=== PATIENT | female | born 1990 | race Caucasian/White ===

== ENCOUNTER → 2021-05-07 | Outpatient (CLI) | payer BC ==
[2021-05-07 20:12] LABS: BASOPHILS ABSOLUTE AUTO 0.01 K/mm3 (0.00-0.23); BASOPHILS PERCENT AUTO 0 % (0-2); EOSINOPHILS PERCENT AUTO 0 % (0-6); Hematocrit 41.5 % (33.0-51.0); Hemoglobin 14.2 g/dL (11.5-16.0); IMMATURE GRAN ABSOLUTE AUTO 0.01 K/mm3 (0.00-0.10); IMMATURE GRAN PERCENT AUTO 0 % (0-1); LYMPHOCYTES ABSOLUTE AUTO 2.91 K/mm3 (0.84-5.20); LYMPHOCYTES PERCENT AUTO 37 % (21-46); MONOCYTES ABSOLUTE AUTO 0.69 K/mm3 (0.16-1.47); MONOCYTES PERCENT AUTO 9 % (4-13); Mean Corpuscular HGB 33.3 pg (26.0-34.0); Mean Corpuscular HGB Conc 34.2 g/dL (31.5-36.5); Mean Corpuscular Volume 97 fL (80-100); Mean Platelet Volume 11.3 fL (9.1-12.4); NEUTROPHILS ABSOLUTE AUTO 4.34 K/mm3 (1.96-9.15); NEUTROPHILS PERCENT AUTO 55 % (41-73); Platelet Count 306 K/mm3 (150-400); RDW Coefficient Variation 12.2 % (11.7-14.2); Red Blood Cell Count 4.27 M/mm3 (3.80-5.20); White Blood Cell Count 7.96 K/mm3 (4.00-11.30)
[2021-05-07 20:26] LABS: Alanine Aminotransfer (ALT/SGP 45 U/L (12-78); Albumin, Blood 3.4 g/dL (3.4-5.0); Albumin/Globulin Ratio 0.9 (0.8-1.8); Alk Phos 67 U/L (50-136); Anion Gap 5 mmol/L (6-16); Aspartate Aminotrans (AST/SGOT 28 U/L (12-37); Bilirubin, Total 0.2 mg/dL (0.1-1.0); Blood Urea Nitrogen 12 mg/dL (8-24); Bun/Creatinine Ratio 20.6 (12.0-20.0); CHOL/HDL RATIO 5.3; CO2, Blood 27 mmol/L (21-32); Calcium, Blood 8.6 mg/dL (8.5-10.1); Chloride, Blood 106 mmol/L (98-108); Cholesterol 233 mg/dL (50-200); Creatinine, Blood 0.58 mg/dL (0.40-1.00); Globulin, Blood 3.9 g/dL (2.2-4.0); Glomerular Filtration Rate >60 (60-); Glucose, Blood 90 mg/dL (70-99); HDL Cholesterol 44 mg/dL (>39); LDL/HDL RATIO 3.3; Low Density Lipoprotein Chol 146 mg/dL (0-110); Sodium, Blood 138 mmol/L (136-145); Total Protein, Blood 7.3 g/dL (6.4-8.2); Triglycerides 216 mg/dL (30-140); Very Low Density Lipoprot Chol 43 mg/dL (6-28)
== END | disposition home or self-care (01) ==
LOC: LAB SHORT 16:00 → LAB 16:00
PROVIDERS: Nurse Practitioner Family
DX: Z13.220 Encounter for screening for lipoid disorders (principal); Z13.29 Encounter for screening for other suspected endocrine disorder; J45.909 Unspecified asthma, uncomplicated
CPT/HCPCS: 80053; 80061; 84443; 85025

== ENCOUNTER 2021-10-07 17:38 | Inpatient (IN) | payer BC, OTHER ==
[~2021-10-07] VITALS: Ht 162.6 cm; Wt 77.1 kg
[2021-10-07 19:34] LABS: Source, Urine Clean Catch
[2021-10-07 19:43] LABS: Appearance, Urine Clear (Clear); Bilirubin, Urine Neg (Neg); Blood, Urine 5+ (Neg); Color, Urine Amber (P-Yellow); Glucose Qualitative, Urine Neg (Neg); Ketones, Urine 2+ (Neg); Leukocyte Esterase, Urine Neg (Neg); Nitrite, Urine Neg (Neg); Protein, Urine 3+ (Neg); Urobilinogen, Urine 1+ (Normal)
[2021-10-07 20:00] LABS: Bacteria Many /hpf; Squamous Epithelial Cells Rare /hpf (Few); White Blood Cells, Urine 0-2 /hpf (0-5)
[2021-10-07 20:00] LABS: BASOPHILS ABSOLUTE AUTO 0.01 K/mm3 (0.00-0.23); BASOPHILS PERCENT AUTO 0 % (0-2); EOSINOPHILS PERCENT AUTO 0 % (0-6); Hematocrit 41.6 % (33.0-51.0); Hemoglobin 14.2 g/dL (11.5-16.0); IMMATURE GRAN ABSOLUTE AUTO 0.03 K/mm3 (0.00-0.10); IMMATURE GRAN PERCENT AUTO 0 % (0-1); LYMPHOCYTES ABSOLUTE AUTO 1.18 K/mm3 (0.84-5.20); LYMPHOCYTES PERCENT AUTO 12 % (21-46); MONOCYTES ABSOLUTE AUTO 0.68 K/mm3 (0.16-1.47); MONOCYTES PERCENT AUTO 7 % (4-13); Mean Corpuscular HGB 34.1 pg (26.0-34.0); Mean Corpuscular HGB Conc 34.1 g/dL (31.5-36.5); Mean Corpuscular Volume 100 fL (80-100); Mean Platelet Volume 10.6 fL (9.1-12.4); NEUTROPHILS ABSOLUTE AUTO 8.17 K/mm3 (1.96-9.15); NEUTROPHILS PERCENT AUTO 81 % (41-73); Platelet Count 287 K/mm3 (150-400); RDW Coefficient Variation 12.1 % (11.7-14.2); RDW Standard Deviation 44.6 fL (35.1-46.3); Red Blood Cell Count 4.16 M/mm3 (3.80-5.20); White Blood Cell Count 10.07 K/mm3 (4.00-11.30)
[2021-10-07] MEDS ORDERED: FAMO20 PO (20:06)
[2021-10-07] MEDS ORDERED: MONT10T PO (20:06)
[2021-10-07] MEDS ORDERED: OXYB5 PO (20:06)
[2021-10-07] MEDS ORDERED: VENL75ER PO (20:06)
[2021-10-07] MEDS ORDERED: FOLI1 PO (20:08)
[2021-10-07] MEDS ORDERED: BACL10 PO (20:08)
[2021-10-07] MEDS ORDERED: PRENATAL TABLE1 EAC2 PO (20:08)
[2021-10-07 20:33] LABS: Alanine Aminotransfer (ALT/SGP 1183 U/L (12-78); Albumin, Blood 3.6 g/dL (3.4-5.0); Alk Phos 386 U/L (50-136); Anion Gap 8 mmol/L (6-16); Aspartate Aminotrans (AST/SGOT 644 U/L (12-37); Bilirubin, Total 2.2 mg/dL (0.1-1.0); Blood Urea Nitrogen 11 mg/dL (8-24); Bun/Creatinine Ratio 21.2 (12.0-20.0); CO2, Blood 26 mmol/L (21-32); Chloride, Blood 104 mmol/L (98-108); Creatinine, Blood 0.52 mg/dL (0.40-1.00); Globulin, Blood 3.6 g/dL (2.2-4.0); Glomerular Filtration Rate >60 (60-); Glucose, Blood 101 mg/dL (70-99); Potassium, Blood 3.9 mmol/L (3.5-5.5); Sodium, Blood 138 mmol/L (136-145); Total Protein, Blood 7.2 g/dL (6.4-8.2)
--- NOTE | 2021-10-08 03:51 | NUR ---
ADMISSION NOTE PT CAME FROM ED AT 0310. PT ADMITTED FOR CHOLEDOCOLITHIASIS. PT NEEDS ERCP AND IS WAITING FOR A COBRA TRANSFER TO A DIFFERENT FACILITY. THERE ARE NO BEDS AVAILABLE AT THIS TIME. PT MEDICATED WITH DILAUDID BEFORE COMING TO THE FLOOR. PT WAS NAUSEATED AND VOMITED EARLIER IN THE DAY, BUT DENIES THE NEED TO DO SO AT THIS TIME. LR BOLUS FINISHED UPON ARRIVAL TO 335 AND PT WAS SWITCHED TO LR AT 100ML/HR. PT WILL BE STARTING ON LEVAQUIN. PT'S O2 HAS BEEN 93-94. PT STS SHE IS NOT SOB. WILL CONTINUE TO MONITOR. HR HAS BEEN IN THE 100'S AND GETS WORSE WITH PAIN, PER PT. [facility], PT ASKED TO KEEP THEM ON. SKIN CHECKED AND INTACT, WILL ALLOW PT TO STAY IN HER REGULAR CLOTHES. PT HAS HX OF CEREBRAL PALSY AND IS NORMALLY WHEELCHAIR BOUND. PT STS SHE CAN USE BEDSIDE COMMODE WITH ASSISTANCE FROM ONE STAFF MEMBER. PT'S IV FLUSHES BUT WILL NOT DRAW, PER FIFTH HAND. PT IS NPO.
[2021-10-08 05:28] LABS: BASOPHILS ABSOLUTE AUTO 0.01 K/mm3 (0.00-0.23); BASOPHILS PERCENT AUTO 0 % (0-2); EOSINOPHILS PERCENT AUTO 0 % (0-6); Hematocrit 38.6 % (33.0-51.0); Hemoglobin 12.8 g/dL (11.5-16.0); IMMATURE GRAN ABSOLUTE AUTO 0.01 K/mm3 (0.00-0.10); IMMATURE GRAN PERCENT AUTO 0 % (0-1); LYMPHOCYTES ABSOLUTE AUTO 0.99 K/mm3 (0.84-5.20); LYMPHOCYTES PERCENT AUTO 17 % (21-46); MONOCYTES ABSOLUTE AUTO 0.53 K/mm3 (0.16-1.47); MONOCYTES PERCENT AUTO 9 % (4-13); Mean Corpuscular HGB 33.5 pg (26.0-34.0); Mean Corpuscular HGB Conc 33.2 g/dL (31.5-36.5); Mean Corpuscular Volume 101 fL (80-100); Mean Platelet Volume 10.9 fL (9.1-12.4); NEUTROPHILS ABSOLUTE AUTO 4.35 K/mm3 (1.96-9.15); NEUTROPHILS PERCENT AUTO 74 % (41-73); Platelet Count 255 K/mm3 (150-400); RDW Coefficient Variation 12.2 % (11.7-14.2); RDW Standard Deviation 45.6 fL (35.1-46.3); Red Blood Cell Count 3.82 M/mm3 (3.80-5.20); White Blood Cell Count 5.89 K/mm3 (4.00-11.30)
[2021-10-08 06:52] LABS: Alanine Aminotransfer (ALT/SGP 998 U/L (12-78); Albumin, Blood 2.9 g/dL (3.4-5.0); Albumin/Globulin Ratio 0.9 (0.8-1.8); Alk Phos 347 U/L (50-136); Anion Gap 6 mmol/L (6-16); Aspartate Aminotrans (AST/SGOT 523 U/L (12-37); Bilirubin, Total 3.1 mg/dL (0.1-1.0); Blood Urea Nitrogen 10 mg/dL (8-24); Bun/Creatinine Ratio 20.8 (12.0-20.0); CO2, Blood 26 mmol/L (21-32); Calcium, Blood 8.3 mg/dL (8.5-10.1); Chloride, Blood 106 mmol/L (98-108); Creatinine, Blood 0.48 mg/dL (0.40-1.00); Globulin, Blood 3.2 g/dL (2.2-4.0); Glomerular Filtration Rate >60 (60-); Glucose, Blood 118 mg/dL (70-99); Potassium, Blood 4.3 mmol/L (3.5-5.5); Sodium, Blood 138 mmol/L (136-145); Total Protein, Blood 6.1 g/dL (6.4-8.2)
[2021-10-08 11:15] LABS: Influenza A, PCR NEGATIVE (NEGATIVE); Influenza B, PCR NEGATIVE (NEGATIVE); Resp Syncytial Virus, PCR NEGATIVE (NEGATIVE); SARS-Cov-2 (COVID-19) PCR, MMC NEGATIVE (NEGATIVE)
--- NOTE | 2021-10-08 17:49 | NUR ---
SUMMARY PT RESTING QUIETLY IN BED WAKES EASILY, PT HAS BEEN PLEASANT AND COOPERATIVE WITH CARE, MED PER EMAR FOR PAIN AND NAUSEA, PT IS UP TO THE COMMODE WITH 1P ASSIST, PT HAD AN MRI TODAY, CURRENTLY AWAITING A BED AT [facility] FOR ERCP, VSS WILL CONT TO MONITOR
--- NOTE | 2021-10-09 04:09 | NUR ---
SHIFT SUMMARY PT HAD SOME MILD BURNING AND BLOOD IN URINE LAST EVENING. PT HAS UTI AND IS TAKING LEVAQUIN DAILY, WHICH WAS STARTED YESTERDAY MORNING. PT LATER STS THAT SHE STARTED HER PERIOD AND WAS GIVEN SUPPLIES. PT ABD APPEARS BLOATED AND PT STS SHE FEELS BLOATED AND GASSY. PT MEDICATED FOR PAIN AND NAUSEA PER EMAR. PT IS A ONE PERSON ASSIST TO BEDSIDE COMMODE. PT IS NPO EXCEPT FOR SIPS OF WATER FOR MEDS AND ICE CHIPS. CALL LIGHT WITHIN REACH AND WILL CONTINUE TO MONITOR THE PT.
[2021-10-09 05:15] LABS: BASOPHILS ABSOLUTE AUTO 0.01 K/mm3 (0.00-0.23); BASOPHILS PERCENT AUTO 0 % (0-2); EOSINOPHILS PERCENT AUTO 0 % (0-6); Hematocrit 35.7 % (33.0-51.0); Hemoglobin 11.8 g/dL (11.5-16.0); IMMATURE GRAN ABSOLUTE AUTO 0.03 K/mm3 (0.00-0.10); IMMATURE GRAN PERCENT AUTO 1 % (0-1); LYMPHOCYTES ABSOLUTE AUTO 1.05 K/mm3 (0.84-5.20); LYMPHOCYTES PERCENT AUTO 16 % (21-46); MONOCYTES PERCENT AUTO 9 % (4-13); Mean Corpuscular HGB 33.5 pg (26.0-34.0); Mean Corpuscular HGB Conc 33.1 g/dL (31.5-36.5); Mean Corpuscular Volume 101 fL (80-100); Mean Platelet Volume 11.1 fL (9.1-12.4); NEUTROPHILS PERCENT AUTO 74 % (41-73); Platelet Count 233 K/mm3 (150-400); RDW Coefficient Variation 12.2 % (11.7-14.2); RDW Standard Deviation 45.3 fL (35.1-46.3); Red Blood Cell Count 3.52 M/mm3 (3.80-5.20); White Blood Cell Count 6.59 K/mm3 (4.00-11.30)
[2021-10-09 05:37] LABS: Albumin, Blood 2.6 g/dL (3.4-5.0); Albumin/Globulin Ratio 0.7 (0.8-1.8); Bilirubin, Direct 3.8 mg/dL (0.0-0.3); Bilirubin, Indirect 0.8 mg/dL (0.1-0.7); Bilirubin, Total 4.6 mg/dL (0.1-1.0); Globulin, Blood 3.8 g/dL (2.2-4.0); Total Protein, Blood 6.4 g/dL (6.4-8.2)
--- NOTE | 2021-10-09 06:46 | NUR ---
PT BEING TRANSFERRED TO [facility] RM [id number] AND IS SCHEDULED TO BE PICKED UP FROM HER ROOM AT 0715. REPORT CALLED AND GIVEN TO CRYSTAL DELATORRE AT 0630. PTS BELONGINS PACKED AND PLACED ON TOP OF HER WHEELCHAIR IN ROOM. TRANSFER PACKET IS IN THE CHART CUPBOARD.
--- NOTE | 2021-10-09 07:15 | NUR ---
ASSUMED CARE OF PT- BEDSIDE REPORT COMPLETED. PT TO COBRA TRANSFER TO [facility], REPORT ALREADY CALLED TO RECIEVING CRITICAL CARE PHYSICIAN ARRANGED FOR 714. TRANSFER NOTE- PT PAIN SEEMS WELL MANAGED LAST MEDICATED FOR PAIN AT 629. CALLED [facility] AND INFORMED RECIEVING RN OF THE TIMEOF PT NANCY MARTINEZ DEPARTURE.
== END 2021-10-09 07:36 | disposition short-term general hospital (02) | DRG 446 ==
LOC: ER 17:38 → MEDS 10-08 02:08
PROVIDERS: Family Medicine; Internal Medicine; Physician Assistant; ADMIT Internal Medicine
DX: K80.50 Calculus of bile duct without cholangitis or cholecystitis without obstruction (principal); Z20.822 Contact with and (suspected) exposure to COVID-19; F32.A Depression, unspecified; K21.9 Gastro-esophageal reflux disease without esophagitis; K59.00 Constipation, unspecified; G80.9 Cerebral palsy, unspecified; Z88.1 Allergy status to other antibiotic agents; Z79.899 Other long term (current) drug therapy
CPT/HCPCS: 0241U; 36415; 74176; 74181; 80053; 80076; 81001; 81025; 83605; 83690; 85025; 87086; 96374; 96375; 96376; 99285-25; A9270; J1170; J1650; J1956; J2405; J7030; J7120

== ENCOUNTER 2021-10-18 14:11 | Emergency (ER) | payer BC, OTHER ==
[~2021-10-18] VITALS: Ht 160 cm; Wt 78.5 kg
[~2021-10-18 14:11] MED LIST: BACL10 PO; FAMO20 PO; FOLI1 PO; MONT10T PO; OXYB5 PO; PRENATAL TABLE1 EAC2 PO; VENL75ER PO
[2021-10-18 15:32] LABS: BASOPHILS ABSOLUTE AUTO 0.03 K/mm3 (0.00-0.23); BASOPHILS PERCENT AUTO 0 % (0-2); EOSINOPHILS ABSOLUTE AUTO 0.01 K/mm3 (0.00-0.68); EOSINOPHILS PERCENT AUTO 0 % (0-6); Hematocrit 40.7 % (33.0-51.0); Hemoglobin 13.7 g/dL (11.5-16.0); IMMATURE GRAN ABSOLUTE AUTO 0.05 K/mm3 (0.00-0.10); IMMATURE GRAN PERCENT AUTO 0 % (0-1); LYMPHOCYTES PERCENT AUTO 14 % (21-46); MONOCYTES ABSOLUTE AUTO 1.19 K/mm3 (0.16-1.47); MONOCYTES PERCENT AUTO 9 % (4-13); Mean Corpuscular HGB 33.8 pg (26.0-34.0); Mean Corpuscular HGB Conc 33.7 g/dL (31.5-36.5); Mean Corpuscular Volume 101 fL (80-100); Mean Platelet Volume 10.7 fL (9.1-12.4); NEUTROPHILS ABSOLUTE AUTO 9.56 K/mm3 (1.96-9.15); NEUTROPHILS PERCENT AUTO 76 % (41-73); Platelet Count 445 K/mm3 (150-400); RDW Coefficient Variation 12.3 % (11.7-14.2); RDW Standard Deviation 46.2 fL (35.1-46.3); Red Blood Cell Count 4.05 M/mm3 (3.80-5.20); White Blood Cell Count 12.64 K/mm3 (4.00-11.30)
[2021-10-18 16:02] LABS: Alanine Aminotransfer (ALT/SGP 118 U/L (12-78); Albumin, Blood 3.2 g/dL (3.4-5.0); Albumin/Globulin Ratio 0.8 (0.8-1.8); Alk Phos 187 U/L (50-136); Anion Gap 7 mmol/L (6-16); Aspartate Aminotrans (AST/SGOT 56 U/L (12-37); Bilirubin, Total 0.6 mg/dL (0.1-1.0); Blood Urea Nitrogen 8 mg/dL (8-24); CO2, Blood 26 mmol/L (21-32); Chloride, Blood 105 mmol/L (98-108); Creatinine, Blood 0.57 mg/dL (0.40-1.00); Globulin, Blood 4.1 g/dL (2.2-4.0); Glomerular Filtration Rate >60 (60-); Glucose, Blood 98 mg/dL (70-99); Potassium, Blood 4.1 mmol/L (3.5-5.5); Sodium, Blood 138 mmol/L (136-145); Total Protein, Blood 7.3 g/dL (6.4-8.2)
[2021-10-18] MEDS ORDERED: AMOCLA875 PO (17:05)
== END 2021-10-18 18:47 | disposition home or self-care (01) ==
LOC: ER 14:11
PROVIDERS: Physician Assistant
DX: G89.18 Other acute postprocedural pain (principal); R10.9 Unspecified abdominal pain; K21.9 Gastro-esophageal reflux disease without esophagitis; Z90.49 Acquired absence of other specified parts of digestive tract; Z79.899 Other long term (current) drug therapy
CPT/HCPCS: 36415; 74177; 80053; 83605; 83690; 85025; A9270; J2405; J2543; J7030; Q9967

== ENCOUNTER → 2022-08-05 | Outpatient (CLI) | payer BC, OTHER ==
[~2022-08-05] MED LIST changes: +AMOCLA875 PO
== END ==
LOC: LAB SHORT 11:17 → LAB 11:17
DX: O09.893 Supervision of other high risk pregnancies, third trimester (principal); Z3A.00 Weeks of gestation of pregnancy not specified
CPT/HCPCS: 87081; 87150

== ENCOUNTER 2022-08-25 05:35 | Inpatient (IN) | payer BC, OTHER ==
[~2022-08-25] VITALS: Ht 160 cm; Wt 81.8 kg
[2022-08-25 07:23] LABS: BASOPHILS ABSOLUTE AUTO 0.01 K/mm3 (0.00-0.23); BASOPHILS PERCENT AUTO 0 % (0-2); EOSINOPHILS PERCENT AUTO 0 % (0-6); Hematocrit 40.3 % (33.0-51.0); Hemoglobin 13.5 g/dL (11.5-16.0); IMMATURE GRAN ABSOLUTE AUTO 0.08 K/mm3 (0.00-0.10); IMMATURE GRAN PERCENT AUTO 1 % (0-1); LYMPHOCYTES ABSOLUTE AUTO 1.77 K/mm3 (0.84-5.20); LYMPHOCYTES PERCENT AUTO 22 % (21-46); MONOCYTES ABSOLUTE AUTO 0.53 K/mm3 (0.16-1.47); MONOCYTES PERCENT AUTO 7 % (4-13); Mean Corpuscular HGB 34.3 pg (26.0-34.0); Mean Corpuscular HGB Conc 33.5 g/dL (31.5-36.5); Mean Corpuscular Volume 102 fL (80-100); NEUTROPHILS ABSOLUTE AUTO 5.57 K/mm3 (1.96-9.15); NEUTROPHILS PERCENT AUTO 70 % (41-73); Platelet Count 220 K/mm3 (150-400); RDW Coefficient Variation 13.4 % (11.7-14.2); RDW Standard Deviation 49.9 fL (35.1-46.3); Red Blood Cell Count 3.94 M/mm3 (3.80-5.20); White Blood Cell Count 7.96 K/mm3 (4.00-11.30)
[2022-08-25] MEDS ORDERED: FLUT1DIS2 INH (07:32)
[2022-08-25] MEDS ORDERED: Aspir 8181 MG PO (07:33)
[2022-08-25] MEDS ORDERED: MAGNESIUM OXID500 MG PO (07:34)
[2022-08-25] MEDS ORDERED: HUMULIN N100 UNIT/3 SQ (07:34)
[2022-08-25] MEDS ORDERED: ACYC400 PO (07:35)
--- NOTE | 2022-08-25 08:39 | NUR ---
08/25/22 0839 Petra Portillo C/S BOY TO NICU, CORD BLOOD GIVEN TO RN, NO BLOOD GAS WANTED. TIME 0809 VIABLE MALE INFANT.
--- NOTE | 2022-08-25 10:20 | NUR ---
PT HERE FOR PCS DUE TO CP
--- NOTE | 2022-08-25 10:45 | NUR ---
PT DENIES ANY PAIN. TRADING FLOOR OPERATOR IN TALKING WITH PATIENT. ENCOURAGED PT RELAX ARM WHEN B/P CUFF INFLATING
--- NOTE | 2022-08-25 11:02 | NUR ---
PT SET UP WITH AND INSTRUCTED ON PUMPING.
[2022-08-26 06:14] LABS: BASOPHILS ABSOLUTE AUTO 0.01 K/mm3 (0.00-0.23); BASOPHILS PERCENT AUTO 0 % (0-2); EOSINOPHILS PERCENT AUTO 0 % (0-6); Hemoglobin 9.8 g/dL (11.5-16.0); IMMATURE GRAN ABSOLUTE AUTO 0.08 K/mm3 (0.00-0.10); IMMATURE GRAN PERCENT AUTO 1 % (0-1); LYMPHOCYTES ABSOLUTE AUTO 3.15 K/mm3 (0.84-5.20); LYMPHOCYTES PERCENT AUTO 27 % (21-46); MONOCYTES ABSOLUTE AUTO 0.89 K/mm3 (0.16-1.47); MONOCYTES PERCENT AUTO 8 % (4-13); Mean Corpuscular HGB 35.4 pg (26.0-34.0); Mean Corpuscular Volume 101 fL (80-100); Mean Platelet Volume 11.8 fL (9.1-12.4); NEUTROPHILS ABSOLUTE AUTO 7.39 K/mm3 (1.96-9.15); NEUTROPHILS PERCENT AUTO 64 % (41-73); Platelet Count 177 K/mm3 (150-400); RDW Coefficient Variation 13.3 % (11.7-14.2); RDW Standard Deviation 48.6 fL (35.1-46.3); Red Blood Cell Count 2.77 M/mm3 (3.80-5.20); White Blood Cell Count 11.52 K/mm3 (4.00-11.30)
[2022-08-26 06:30] LABS: Albumin, Blood 1.2 g/dL (3.4-5.0); Albumin/Globulin Ratio 0.4 (0.8-1.8); Bilirubin, Total 0.3 mg/dL (0.1-1.0); Bun/Creatinine Ratio 14.5 (12.0-20.0); Calcium, Blood 7.8 mg/dL (8.5-10.1); Creatinine, Blood 1.31 mg/dL (0.40-1.00); Globulin, Blood 3.4 g/dL (2.2-4.0); Potassium, Blood 4.7 mmol/L (3.5-5.5); Total Protein, Blood 4.6 g/dL (6.4-8.2)
--- NOTE | 2022-08-26 07:20 | NUR ---
ICU CALLED FOR KAMILAH ABEL, MAGNESIUM SULFATE ISNT GOING TO GO THRU HER CURRENT IV THAT IS A 20 SUPERFICIAL PERIPHERIAL. THEY WILL CALL BACK
--- NOTE | 2022-08-26 08:25 | NUR ---
DR ZAMUDIO CALLED ORDERS TO DC MOTRIN AND TORDAL DUE TO CREATINE LEVELS
--- NOTE | 2022-08-26 09:24 | NUR ---
powerglide placed by pcu, 20g 8cm by nesha rn, magso4 4gm bolus started
--- NOTE | 2022-08-26 10:09 | NUR ---
ls clear bilateraly before magso 4 started, ls clear bilaterally after loading dose is in, ls clear at 1005 bilaterally, pt starting to feel the flushed feeling of the magso4, have a fan at bedside for the hot flash if she gets it, has call light with in reach, to call rn for anything or if she feels like she is having problems breathing
--- NOTE | 2022-08-26 10:20 | NUR ---
PT SLEEPING, RESP RATE IS 18
--- NOTE | 2022-08-26 11:28 | NUR ---
PT SLEEPING/SNORING, DUE FOR CBG SOON
--- NOTE | 2022-08-26 13:02 | NUR ---
reports doing well. denies any difficulty breathing, has good urine output, pt is aware that it has been awhile since pain meds, pt reports she is good for now.
--- NOTE | 2022-08-26 14:30 | NUR ---
PT SLEEPING, CAN HEAR HER SNOORING WHEN CHECKING ON HER, WILL LET HER REST
--- NOTE | 2022-08-26 15:39 | NUR ---
PT SLEEPING, CAN HEAR SNOORING, CLEAR YELLOW URINE IN [place]ILKINSON CATH. PT DIDNT EVEN MOVE WITH RN MAKING SMALL NOISE IN ROOM. WILL LET PT SLEEP LONGER
--- NOTE | 2022-08-26 16:14 | NUR ---
PT CONTINUES TO SLEEP, WITH LIGHT SNOORING, CALLED TO MAKE SURE SHE IS OK, HE HASNT HEARD FROM HER IN A WHILE, EXPLAINED SHE WAS SLEEPING, WILL WAKE PT UP SOON, DINNER TRAYS COME AT 1645 AND NEEDS CBG DONE, CONTINUES TO HAVE YELLOW URINE OUTPUT
--- NOTE | 2022-08-26 17:54 | NUR ---
IN TO DO VENESSA CARE, PARENTS AT BEDSIDE PT STILL EATING, ENCOURAGED TO CALL RN WHEN DONE EATING SO CAN DO VENESSA CARE
[2022-08-27 05:33] LABS: Hematocrit 28.3 % (33.0-51.0); Hemoglobin 9.4 g/dL (11.5-16.0); Mean Corpuscular HGB 34.6 pg (26.0-34.0); Mean Corpuscular HGB Conc 33.2 g/dL (31.5-36.5); Mean Corpuscular Volume 104 fL (80-100); Mean Platelet Volume 11.1 fL (9.1-12.4); Platelet Count 213 K/mm3 (150-400); RDW Coefficient Variation 13.9 % (11.7-14.2); RDW Standard Deviation 51.6 fL (35.1-46.3); Red Blood Cell Count 2.72 M/mm3 (3.80-5.20); White Blood Cell Count 10.42 K/mm3 (4.00-11.30)
[2022-08-27 06:02] LABS: Albumin, Blood 1.3 g/dL (3.4-5.0); Albumin/Globulin Ratio 0.4 (0.8-1.8); Bilirubin, Total 0.2 mg/dL (0.1-1.0); Bun/Creatinine Ratio 17.5 (12.0-20.0); Calcium, Blood 7.3 mg/dL (8.5-10.1); Creatinine, Blood 0.8 mg/dL (0.40-1.00); Globulin, Blood 3.1 g/dL (2.2-4.0); Potassium, Blood 4.7 mmol/L (3.5-5.5); Total Protein, Blood 4.4 g/dL (6.4-8.2)
== END 2022-08-28 13:45 | disposition home or self-care (01) | DRG 787 ==
LOC: BC 05:35
PROVIDERS: ADMIT Obstetrics & Gynecology
PROC: 30233N1 Transfusion of Nonautologous Red Blood Cells into Peripheral Vein, Percutaneous Approach (ICD-10-PCS; 2022-08-25)
PROC: 10D00Z1 Extraction of Products of Conception, Low, Open Approach (ICD-10-PCS; principal; 2022-08-25 07:30)
DX: O24.424 Gestational diabetes mellitus in childbirth, insulin controlled (principal); D62 Acute posthemorrhagic anemia; O98.513 Other viral diseases complicating pregnancy, third trimester; Z37.0 Single live birth; O13.4 Gestational [pregnancy-induced] hypertension without significant proteinuria, complicating childbirth; O99.353 Diseases of the nervous system complicating pregnancy, third trimester; O14.15 Severe pre-eclampsia, complicating the puerperium; O90.81 Anemia of the puerperium; G80.8 Other cerebral palsy; A60.04 Herpesviral vulvovaginitis; M24.451 Recurrent dislocation, right hip; M24.452 Recurrent dislocation, left hip; Z88.1 Allergy status to other antibiotic agents; Z88.5 Allergy status to narcotic agent; Z88.8 Allergy status to other drugs, medicaments and biological substances; Z79.899 Other long term (current) drug therapy; Z79.2 Long term (current) use of antibiotics; Z3A.38 38 weeks gestation of pregnancy; Z90.49 Acquired absence of other specified parts of digestive tract; Z79.82 Long term (current) use of aspirin; Z79.4 Long term (current) use of insulin; Z98.890 Other specified postprocedural states
CPT/HCPCS: 36415; 36416; 80053; 82947; 85025; 85027; 86850; 86900; 86901; 86923; 94640; 94664; 94760; A9270; J0610; J0690; J1100; J1815; J1885; J2370; J2405; J2590; J2704; J2765; J3010; J3475; J7120; J7121

== ENCOUNTER → 2024-10-28 | Outpatient (CLI) | payer BC ==
[~2024-10-28] MED LIST changes: +ACYC400 PO; +Aspir 8181 MG PO; +FLUT1DIS2 INH; +HUMULIN N100 UNIT/3 SQ; +MAGNESIUM OXID500 MG PO
[2024-10-28 15:08] LABS: Protein, Urine Quantitative <5.0 mg/dL (0.0-11.9)
== END | disposition home or self-care (01) ==
LOC: LAB SHORT 11:32
PROVIDERS: Obstetrics & Gynecology
DX: Z87.59 Personal history of other complications of pregnancy, childbirth and the puerperium (principal)
CPT/HCPCS: 81050; 84156